=== PATIENT | female | born 1970 | race Hispanic/Latino ===

== ENCOUNTER 2019-08-07 01:20 | Inpatient (IN) | payer MEDICAID ==
--- NOTE | 2019-08-07 04:01 | P.HP ---
Certification for Inpatient Patient admitted to: Inpatient With expected LOS: <2 Midnights Practitioner: I am a practitioner with admitting privileges, knowledge of patient current condition, hospital course, and medical plan of care. Services: Services provided to patient in accordance with Admission requirements found in Title 42 Section 412.3 of the Code of Federal Regulations Patient History Date of Service: 08/07/19 Reason for admission: Cough and shortness of breath History of Present Illness: 49-year-old woman with a history of diabetes mellitus and hypertension was t ransferred from [facility] to this hospital due to acute respiratory failure. Patient was diagnosed with COVID 19 infection about 1 week ago. She reports progressive shortness of breath and coughing spells which became much worse over the last couple of days. Her oxygen saturation was down to 68% on room air in the emergency department. Patient was also febrile. Patient was placed on oxygen by nasal cannula. He was requiring 6 L of oxygen to maintain SaO2 around 89 to 90%. Patient given IV fluid, Zithromax and transferred here to be admitted to the ICU. Her oxygen saturation was 87% on 6 L oxygen by nasal cannula. - Past Medical/Surgical History -: Hypertension -: Diabetes - Family History Family History: Reviewed- Non-Contributory - Social History Smoking Status: Never smoker Alcohol use: No CD- Drugs: No Place of Residence: Home Review of Systems Other: Except as documented, all other systems reviewed and negative. Physical Examination - Physical Exam General: Alert, Moderate distress HEENT: Mucous membr. moist/pink, Sclerae nonicteric Neck: Supple, JVD not distended Respiratory: Normal air movement, Crackles/rales (Mild bilateral basal rales.) Cardiovascular: No edema, Normal pulses, Regular rate/rhythm, Normal S1 S2 Capillary refill: <2 Seconds Gastrointestinal: Normal bowel sounds, Soft and benign, No tenderness Musculoskeletal: No swelling, No erythema Integumentary: No rashes Neurological: Normal speech, Normal strength at 5/5 x4 extr, Cranial nerves 3-12 intact Assessment and Plan - Problems (Diagnosis) (1) Acute respiratory failure with hypoxia Current Visit: Yes Status: Acute (2) Viral pneumonia Current Visit: Yes Status: Acute (3) COVID-19 virus infection Current Visit: Yes Status: Acute (4) Diabetes mellitus type 2 in nonobese Current Visit: Yes Status: Acute (5) Hypertension Current Visit: Yes Status: Acute - Plan Admit to the ICU. Supportive measures with IV fluids. Antipyretics. Start IV Zithromax Start IV Solu-Medrol Titrate oxygen. Use Ventimask for now. BiPAP as needed. Consult to pulmonary. Insulin sliding scale for glucose management. Hold antihypertensives for now. Mena catheter. - Advance Directives Does patient have a Living Will: No Does patient have a Durable POA for Healthcare: No
[2019-08-07] MEDS ORDERED: ACETAMINOPHEN 500 MG TAB PO PRN (04:19)
[2019-08-07] MEDS ORDERED: NA CHLORIDE 0.9% 1,000 ML IV SCH (05:00)
[2019-08-07] MEDS ORDERED: AZITHROMYCIN IV 500 MG in NA CHLORIDE 0.9% 250 ML IVPB SCH ×3 (05:00→22:00)
[2019-08-07 05:24] LABS: Specific Gravity >= 1.030 (1.005-1.030); Urine Appearance CLEAR; Urine Bilirubin NEGATIVE (NEG); Urine Blood NEGATIVE (NEG); Urine Color YELLOW; Urine Glucose 3+ (NEG); Urine Protein TRACE (NEG); Urine Specific Gravity >=1.030 (1.005-1.030); Urine Urobilinogen 0.2 mg/dL (0.2-1.0)
[2019-08-07 05:25] LABS: Absolute Lymphocytes (CBC) 0.7 K/uL (0.7-4.9); Basophils % 0.1 % (0-1.3); Lymphocytes % 8.2 % (15.3-44.8); MPV 8.1 fL (7.6-11.3); RBC Red Blood Cell Count 4.31 M/uL (3.86-4.86)
[2019-08-07 05:29] LABS: Protime INR 1.02
[2019-08-07 05:39] LABS: Albumin 2.6 g/dL (3.4-5.0); Bilirubin Total 0.5 mg/dL (0.2-1.0); Magnesium 2.9 mg/dL (1.8-2.4); Phosphorus 3.5 mg/dL (2.5-4.9); Potassium 3.7 mmol/L (3.5-5.1); Protein, Total 7.3 g/dL (6.4-8.2)
[2019-08-07 05:44] LABS: Urine Amorphous Sediment 2+ /HPF (NONE SEEN); Urine Bacteria <20 /HPF (<20); Urine Culture Reflex Order NOT NEEDED; Urine RBC NONE SEEN /HPF (NONE SEEN); Urine Urothelial Cells <5 /HPF (NONE SEEN)
[2019-08-07 05:50] LABS: Arterial Blood Carboxyhemoglob 0.7 % (0-1.5); Blood Gas Oxyhemoglobin 92.5 % (94-97); Blood O2 Saturation 94.1 % (92-98.5)
[2019-08-07 07:00] LABS: Blood Morphology Comment NOT SEEN (NOT SEEN); Platelet Estimate ADEQ
[2019-08-07 07:54] LABS: Ferritin 364.6 ng/mL (8-388)
[2019-08-07] MEDS ORDERED: PNEUMOCOCCAL VACCINE 0.5 ML IMVAC ONE (08:00)
[2019-08-07] MEDS ORDERED: POTASSIUM 25 MEQ EFFERV TAB PO ONE (08:00)
[2019-08-07] MEDS: INSULIN -REGULAR HUMAN 50 UNIT/0.5 ML ML SQ SCH ×4 (08:14→21:32)
--- NOTE | 2019-08-07 08:27 | RAD REPORT ---
EXAM DESCRIPTION: RAD - Chest Single View - 08/07/2019 5:21 am CLINICAL HISTORY: pneumonia Chest pain. COMPARISON: No comparisons FINDINGS: Portable technique limits examination quality. Moderate bilateral pulmonary opacities are noted most compatible with pneumonia. The heart is upper l imit normal in size. No displaced fractures.
[2019-08-07] MEDS: ENOXAPARIN 40 MG/0.4 ML SQ SCH ×3 (08:51→20:11)
[2019-08-07] MEDS ORDERED: METHYLPREDNISOLONE 40 MG INJ IV SCH (09:00)
[2019-08-07] MEDS: levoFLOXacin 500 MG TAB PO SCH (10:20)
--- NOTE | 2019-08-07 12:38 | P.CNS ---
Date of Consult: 08/07/19 Reason for Consult: Respiratory failure Chief Complaint: Cough and shortness of breath History of Present Illness: Patient is 49 years of age as transfer from another facility due to respiratory failure secondary to COVID 19 infection. Diagnosed about a week ago I saw this morning as not tolerating a CPAP shortness of breath and coughing which became progressive patient was on non-rebreather when assault this morning otherwise doing well does not appear to be any distress Allergies No Known Allergies Allergy (Verified 08/07/19 04:02) Home Medications: Glimepiride 1 mg PO BID 08/07/19 Losartan Potassium 25 mg PO DAILY 08/07/19 Metformin HCl 1,000 mg PO BID 08/07/19 Saxagliptin HCl [Onglyza] 5 mg PO DAILY 08/07/19 Simvastatin 20 mg PO BEDTIME 08/07/19 Solifenacin Succinate [Vesicare] 1 tab PO DAILY 08/07/19 - Past Medical/Surgical History Diabetic: Yes -: Hypertension -: Diabetes -: High cholesterol -: - Social History Alcohol use: No CD- Drugs: No Caffeine use: Yes Place of Residence: Home Review of Systems is unable to be obtained Physical Examination Temp Pulse Resp BP Pulse Ox 97 F 77 29 H 96/69 92 08/07/19 02:43 08/07/19 06:00 08/07/19 06:00 08/07/19 06:00 08/07/19 06:00 General: Other (Deferred) Laboratory Data (last 24 hrs) 08/07/19 04:58: PT 12.0, INR 1.02 08/07/19 04:58: Sodium 134 L, Potassium 3.7, BUN 14, Creatinine 0.73, Glucose 323 H, Phosphorus 3.5, Magnesium 2.9 H, Total Bilirubin 0.5, AST 35, ALT 40, Alkaline Phosphatase 96 08/07/19 04:58: WBC 8.5, Hgb 11.9 L, Hct 36.0, Plt Count 388 - Problems (1) Pneumonia due to COVID-19 virus Current Visit: Yes Status: Acute Plan: Patient is 49 years of age admitted with a Covid 19 pneumonia. She is doing better patient's start on BiPAP continue with steroids Dc IV fluids blood gases at improving interstitial changes compatible with coronal RS pneumonia Lovenox for DVT prophylaxis patient is clinically improving oblique can convert to nasal cannula oxygen tomorrow transfer to the floor once a room-air sat is above 90 percent consider discharging home on prednisone 10 mg twice a day
[2019-08-07 13:36] LABS: Arterial Blood Carboxyhemoglob 0.7 % (0-1.5); Blood O2 Saturation 95.4 % (92-98.5)
--- NOTE | 2019-08-07 13:57 | P.PN ---
Subjective Date of Service: 08/07/19 Chief Complaint: Cough and shortness of breath Subjective: Improving (Patient appears overall improved. Requiring non- rebreather.) Physical Examination - Vital Signs Temperature: 97 F Blood Pressure: 96/69 Pulse: 77 Respirations: 29 Pulse Ox (%): 92 - Physical Exam General: Alert, In no apparent distress, Cooperative HEENT: Atraumatic Neck: Supple Respiratory: Diminished (Bilateral) Cardiovascular: Normal pulses, Regular rate/rhythm Gastrointestinal: Normal bowel sounds, Soft and benign, Non-distended Integumentary: No tenderness/swelling, No erythema, No warmth, No cyanosis Neurological: Normal speech, Normal strength at 5/5 x4 extr, Normal tone, Normal affect - Studies Laboratory Data (last 24 hrs) 08/07/19 04:58: PT 12.0, INR 1.02 08/07/19 04:58: Sodium 134 L, Potassium 3.7, BUN 14, Creatinine 0.73, Glucose 323 H, Phosphorus 3.5, Magnesium 2.9 H, Total Bilirubin 0.5, AST 35, ALT 40, Alkaline Phosphatase 96 08/07/19 04:58: WBC 8.5, Hgb 11.9 L, Hct 36.0, Plt Count 388 Medications List Reviewed: Yes Assessment & Plan Discharge Plan: Home Plan to discharge in: 48 Hours Physician Review Additional Text: Impression Acute respiratory failure with hypoxia secondary to bilateral viral pneumonia positive for COVID 19 Diabetes mellitus type 2 bzj-ihybewa-pzvsxcrdx with hyperglycemia Hypertension Hyperlipidemia Plan: Acute respiratory failure with hypoxia secondary to bilateral viral pneumonia positive for COVID 19: Patient appears improved since yesterday although requiring non-rebreather. Case discussed at length with pulmonology. Pulmonology plans for BiPAP. Continue to wean off oxygen. Will provide incentive spirometer. Will change Solu-Medrol to Decadron. Will discuss with pulmonology about the possibility of convalescent plasma. Continue monitor closely. Anticipate improvement over the next 48 hr. Diabetes mellitus type 2 [id number]-axpgmgj-lwrvhrpna with hyperglycemia: Patient currently on Decadron. We will provide insulin sliding scale. Will check A1c. Restart home medication. Maintain blood sugar between 100-200. Hypertension: Restart home medication. Will monitor closely. Hyperlipidemia: Restart home medication. Will monitor closely. Time Spent Managing Pts Care (In Minutes): 55
[2019-08-07] MEDS: METFORMIN HCL 500 MG TAB PO SCH (16:07)
[2019-08-07] MEDS: GLIMEPIRIDE 2 MG TABLET PO SCH (16:08)
[2019-08-07] MEDS: ATORVASTATIN 10 MG TAB PO SCH (20:12)
[2019-08-07] MEDS ORDERED: HOME MED 1 EA UNK (Simvastatin [Simvastatin] 20 MG) PO SCH (21:00)
[2019-08-08 05:27] LABS: BUN Blood Urea Nitrogen 20 mg/dL (7-18); Bicarbonate 25 mmol/L (21-32); Glucose Level 181 mg/dL (74-106); Potassium 3.5 mmol/L (3.5-5.1); Sodium Level 139 mmol/L (136-145)
[2019-08-08] MEDS ORDERED: POTASSIUM CL SA 10 MEQ TAB PO ONE (05:44)
[2019-08-08] MEDS ORDERED: GLUCAGON 1 MG/VIAL IM PRN (07:11)
[2019-08-08] MEDS ORDERED: D50W 25 GM/50 ML SYRINGE/VIAL IV PRN (07:11)
[2019-08-08] MEDS: ENOXAPARIN 40 MG/0.4 ML SQ SCH ×2 (08:03→20:41)
[2019-08-08] MEDS: GLIMEPIRIDE 2 MG TABLET PO SCH ×2 (08:03→16:55)
[2019-08-08] MEDS: METFORMIN HCL 500 MG TAB PO SCH ×2 (08:03→16:55)
[2019-08-08] MEDS: levoFLOXacin 500 MG TAB PO SCH (08:03)
[2019-08-08] MEDS: INSULIN -REGULAR HUMAN 50 UNIT/0.5 ML ML SQ SCH ×4 (08:04→20:41)
[2019-08-08] MEDS: dexAMETHasone 4 MG/ML VIAL IV SCH ×2 (08:06→16:55)
[2019-08-08] MEDS: SAXAGLIPTIN HCL 5 MG PO SCH (08:06)
[2019-08-08] MEDS: FAMOTIDINE 20 MG/2 ML VIAL IV SCH ×2 (08:22→20:42)
[2019-08-08] MEDS: INSULIN GLARGINE 100 UNITS/ML SQ SCH (08:24)
[2019-08-08] MEDS ORDERED: dexAMETHasone 4 MG TAB PO SCH (09:00)
[2019-08-08] MEDS ORDERED: SPIRONOLACTONE 25 MG TABLET PO SCH ×2 (09:00)
[2019-08-08] MEDS ORDERED: LOSARTAN POTASSIUM 50 MG TABLET PO SCH (09:00)
[2019-08-08 09:08] LABS: Arterial Blood Carboxyhemoglob 0.8 % (0-1.5); Blood Gas Oxyhemoglobin 89.5 % (94-97); Blood O2 Saturation 90.9 % (92-98.5)
--- NOTE | 2019-08-08 15:51 | P.PN ---
Subjective Date of Service: 08/08/19 Chief Complaint: Cough and shortness of breath Subjective: Improving, Doing well Physical Examination - Vital Signs Temperature: 97.0 F Blood Pressure: 98/69 Pulse: 86 Respirations: 23 Pulse Ox (%): 96 - Physical Exam General: Alert, In no apparent distress, Cooperative HEENT: Atraumatic Neck: Supple Respiratory: Other (Better air movement bilateral but still decreased bilatera lly. Patient on non-rebreather.) Cardiovascular: Normal pulses, Regular rate/rhythm Gastrointestinal: Normal bowel sounds, No tenderness, No masses, No rebound, No guarding Neurological: Normal speech, Normal strength at 5/5 x4 extr, Normal tone, Normal affect - Studies Laboratory Data (last 24 hrs) 08/08/19 05:45: Potassium Cancelled 08/08/19 04:49: Sodium 139, Potassium 3.5, BUN 20 H, Creatinine 0.59, Glucose 181 H Microbiology Data (last 24 hrs): 08/07/19 05:09 Blood - Blood Anaerobic Blood Culture - Final 08/07/19 04:58 Blood - Blood Anaerobic Blood Culture - Final Medications List Reviewed: Yes Assessment & Plan Discharge Plan: Home Plan to discharge in: 72 Hours Physician Review Additional Text: Impression Acute respiratory failure with hypoxia secondary to bilateral viral pneumonia positive for COVID 19 Diabetes mellitus type 2 tzh-oylwscu-kjnsfxhvy with hyperglycemia Hypertension Hyperlipidemia Plan: Acute respiratory failure with hypoxia secondary to bilateral viral pneumonia positive for COVID 19: Patient continues to improve. Wean off non-rebreather. Spoke in detail with patient about the need for possible convalescent plasma. Information provided. She she is to discuss further with family About plasma. Continue Decadron. This was changed to IV. Encourage incentive spirometer. Encourage ambulation. Will discuss further with pulmonology. If condition continues to decline and if patient refuses plasma will need to consider Remdesivir. Continue DVT prophylaxis. Anticipate improvement over the next 72 hr. Diabetes mellitus type 2 cee-ajabylz-sohhxbfoq with hyperglycemia: Patient currently on Decadron. Continue insulin sliding scale. Continue to review and adjust medication. Home medication restarted yesterday. Maintain blood sugar between 100-200. Hypertension: Discontinue losartan due to low blood pressure. Hold Aldactone if blood pressure systolic less than 110. This was initiated by pulmonology. Hyperlipidemia: Will review closely. Time Spent Managing Pts Care (In Minutes): 55
[2019-08-08] MEDS: SPIRONOLACTONE 25 MG TABLET PO SCH (18:46)
[2019-08-08] MEDS: ATORVASTATIN 10 MG TAB PO SCH (20:40)
[2019-08-09] MEDS: dexAMETHasone 4 MG/ML VIAL IV SCH ×3 (01:15→17:35)
[2019-08-09 05:14] LABS: Absolute Lymphocytes (CBC) 0.8 K/uL (0.7-4.9); Basophils % 0.2 % (0-1.3); Hematocrit 33.1 % (36.0-45.0); Lymphocytes % 7.2 % (15.3-44.8); MPV 7.9 fL (7.6-11.3); RBC Red Blood Cell Count 4.02 M/uL (3.86-4.86)
[2019-08-09 05:27] LABS: BUN Blood Urea Nitrogen 20 mg/dL (7-18); Bicarbonate 24 mmol/L (21-32); Glucose Level 183 mg/dL (74-106); Sodium Level 138 mmol/L (136-145)
[2019-08-09] MEDS: INSULIN -REGULAR HUMAN 50 UNIT/0.5 ML ML SQ SCH ×4 (08:16→20:24)
[2019-08-09] MEDS: SPIRONOLACTONE 25 MG TABLET PO SCH (08:17)
[2019-08-09] MEDS: METFORMIN HCL 500 MG TAB PO SCH ×2 (08:17→17:37)
[2019-08-09] MEDS: GLIMEPIRIDE 2 MG TABLET PO SCH ×2 (08:18→17:36)
[2019-08-09] MEDS: levoFLOXacin 500 MG TAB PO SCH (08:18)
[2019-08-09] MEDS: INSULIN GLARGINE 100 UNITS/ML SQ SCH (08:18)
[2019-08-09] MEDS: FAMOTIDINE 20 MG/2 ML VIAL IV SCH (08:29)
[2019-08-09] MEDS: ENOXAPARIN 40 MG/0.4 ML SQ SCH ×2 (08:29→20:01)
[2019-08-09] MEDS: SAXAGLIPTIN HCL 5 MG PO SCH (08:31)
--- NOTE | 2019-08-09 08:36 | P.PN ---
Subjective Date of Service: 08/09/19 Chief Complaint: Respiratory failure Subjective: Improving (Patient is steadily improving tolerating BiPAP oxygen requirements in all less than 50% no fever less short of breath) Physical Examination - Vital Signs Temperature: 97.0 F Blood Pressure: 104/75 Pulse: 67 Respirations: 30 Pulse Ox (%): 93 - Physical Exam General: Other (Deferred patient in isolation) - Studies Laboratory Data (last 24 hrs) 08/09/19 04:54: WBC 11.0 H D, Hgb 11.4 L, Hct 33.1 L, Plt Count 512 H D 08/09/19 04:54: Sodium 138, Potassium 4.0, BUN 20 H, Creatinine 0.61, Glucose 183 H Microbiology Data (last 24 hrs): 08/07/19 05:09 Blood - Blood Anaerobic Blood Culture - Final 08/07/19 04:58 Blood - Blood Anaerobic Blood Culture - Final Medications List Reviewed: Yes Assessment & Plan - Problems (Diagnosis) (1) Pneumonia due to COVID-19 virus Current Visit: Yes Status: Acute Plan: Patient admitted with oakley wire pneumonia/gradually improving for sugars under control shortness of breath is better oxygen requirement less than 50% BiPAP p.r.n. change to p.o. Pepcid continue to wean down the O2 incentive spirometry maintain a negative fluid balance blood sugars under control
[2019-08-09] MEDS: FAMOTIDINE 20 MG TAB PO SCH ×2 (09:00→19:59)
[2019-08-09] MEDS ORDERED: NA CHLORIDE 0.9% 100 ML ONE (13:26)
--- NOTE | 2019-08-09 17:01 | P.PN ---
Subjective Date of Service: 08/09/19 Chief Complaint: Respiratory failure Subjective: Other (overall doing well.) Physical Examination - Vital Signs Temperature: 97.0 F Blood Pressure: 126/85 Pulse: 79 Respirations: 27 Pulse Ox (%): 90 - Physical Exam General: Alert, In no apparent distress, Cooperative HEENT: Atraumatic Neck: Supple Respiratory: Other (better air movement) Cardiovascular: Normal pulses, Regular rate/rhythm Gastrointestinal: Normal bowel sounds, No masses, No rebound, No guarding Musculoskeletal: No tenderness, No warmth Integumentary: No erythema, No warmth, No cyanosis Neurological: Normal speech, Normal strength at 5/5 x4 extr, Normal tone, Normal affect - Studies Laboratory Data (last 24 hrs) 08/09/19 04:54: WBC 11.0 H D, Hgb 11.4 L, Hct 33.1 L, Plt Count 512 H D 08/09/19 04:54: Sodium 138, Potassium 4.0, BUN 20 H, Creatinine 0.61, Glucose 183 H Medications List Reviewed: Yes Assessment & Plan Discharge Plan: Home Plan to discharge in: 72 Hours Physician Review Additional Text: Impression Acute respiratory failure with hypoxia secondary to bilateral viral pneumonia positive for COVID 19 Diabetes mellitus type 2 jze-siwuobo-girnbyrub with hyperglycemia Hypertension Hyperlipidemia Plan: Acute respiratory failure with hypoxia secondary to bilateral viral pneumonia positive for COVID 19: Patient continues to improve. Wean off non-rebreather. Patient agrees to convalescent plasma. Information provided.Will start plasma. Continue Decadron. This was changed to IV. Encourage incentive spirometer. Encourage ambulation. Will discuss further with pulmonology. Diabetes mellitus type 2 gll-tnajrhc-oqcrlkxxb with hyperglycemia: Patient currently on Decadron. Continue insulin sliding scale. Continue to review and adjust medication. Home medication restarted yesterday. Maintain blood sugar between 100-200. Hypertension: Discontinue losartan due to low blood pressure. Hold Aldactone if blood pressure systolic less than 110. This was initiated by pulmonology. Hyperlipidemia: Will review closely. Time Spent Managing Pts Care (In Minutes): 55
[2019-08-09] MEDS: ATORVASTATIN 10 MG TAB PO SCH (19:59)
[2019-08-09] MEDS: LORAZEPAM 0.5 MG TABLET PO PRN (21:32)
[2019-08-10] MEDS: dexAMETHasone 4 MG/ML VIAL IV SCH ×2 (00:36→08:54)
[2019-08-10 05:18] VITALS: BMI 29.4
[2019-08-10] MEDS: SAXAGLIPTIN HCL 5 MG PO SCH (07:13)
--- NOTE | 2019-08-10 07:17 | RAD REPORT ---
EXAM DESCRIPTION: RAD - Chest Single View - 08/10/2019 5:29 am CLINICAL HISTORY: Pneumonia COMPARISON: Portable August 06 TECHNIQUE: AP portable chest image was obtained 08/10/2019 5:29 am . FINDINGS: Lung volumes are low, further decreased compared to the prior study. Alveolar opacities ar e scattered in both lung [place]. When adjusting for the more shallow inspiratory effort, lung parench ymal opacification is probably not significantly different. No evidence for improvement. Lung [place] may be slightly worse. Heart and vasculature are normal. No measurable pleural effusion and no pneumothorax. No acute bony abnormality seen. No acute aortic findings suspected. IMPRESSION: Shallow inspiration accentuates the already existing airspace disease throughout both shayne ng [place]. No evidence for improvement. Lung [place] are potentially slightly worse.
[2019-08-10] MEDS: ENOXAPARIN 40 MG/0.4 ML SQ SCH ×2 (08:53→21:08)
[2019-08-10] MEDS: GLIMEPIRIDE 2 MG TABLET PO SCH ×2 (08:53→16:03)
[2019-08-10] MEDS: levoFLOXacin 500 MG TAB PO SCH (08:53)
[2019-08-10] MEDS: METFORMIN HCL 500 MG TAB PO SCH ×2 (08:53→16:03)
[2019-08-10] MEDS: SPIRONOLACTONE 25 MG TABLET PO SCH ×2 (08:53→09:00)
[2019-08-10] MEDS: INSULIN GLARGINE 100 UNITS/ML SQ SCH (08:54)
[2019-08-10] MEDS: FAMOTIDINE 20 MG TAB PO SCH ×2 (08:55→21:09)
[2019-08-10] MEDS: dexAMETHasone 4 MG TAB PO SCH ×2 (09:00→21:09)
[2019-08-10] MEDS: INSULIN -REGULAR HUMAN 50 UNIT/0.5 ML ML SQ SCH ×4 (09:33→21:00)
[2019-08-10] MEDS ORDERED: SPIRONOLACTONE 25 MG TABLET PO SCH (12:02)
[2019-08-10] MEDS: FUROSEMIDE 20 MG/ 2ML VIAL IV SCH (12:07)
--- NOTE | 2019-08-10 12:27 | P.PN ---
Subjective Date of Service: 08/10/19 Chief Complaint: Respiratory failure Subjective: Improving (Patient is improving still requiring high concentrations of oxygen chest x-ray no significant change) Physical Examination - Vital Signs Temperature: 97.2 F Blood Pressure: 102/64 Pulse: 71 Respirations: 18 Pulse Ox (%): 97 - Physical Exam General: Other (Examination deferred) - Studies Medications List Reviewed: Yes Assessment & Plan - Problems (Diagnosis) (1) Pneumonia due to COVID-19 virus Current Visit: Yes Status: Acute Plan: Patient has oakley virus induced pneumonia improving blood pressure is improved at some Lasix increase spironolactone continue negative fluid balance change to p.o. Decadron once patient is confirmed and tolerate nasal cannula oxygen less than 6 6 liters/minute come will consider discharge and low-dose prednisone and mg twice a day for 7 days no antibiotics required also added low-dose spironolactone to maintain a negative fluid balance
--- NOTE | 2019-08-10 14:56 | P.PN ---
Subjective Date of Service: 08/10/19 Chief Complaint: Respiratory failure Subjective: Improving Physical Examination - Vital Signs Temperature: 97.2 F Blood Pressure: 96/68 Pulse: 88 Respirations: 36 Pulse Ox (%): 95 - Physical Exam General: Alert, In no apparent distress, Oriented x3, Cooperative HEENT: Atraumatic Neck: Supple Respiratory: Other (Better air movement bilateral) Cardiovascular: Normal pulses, Regular rate/rhythm Gastrointestinal: Normal bowel sounds, Soft and benign, Non-distended Neurological: Normal speech, Normal strength at 5/5 x4 extr, Normal tone, Normal affect - Studies Medications List Reviewed: Yes Assessment & Plan Discharge Plan: Home Plan to discharge in: 48 Hours Physician Review Additional Text: Impression Acute respiratory failure with hypoxia secondary to bilateral viral pneumonia positive for COVID 19 Diabetes mellitus type 2 dce-omwjwfp-fkznichvq with hyperglycemia Hypertension Hyperlipidemia Plan: Acute respiratory failure with hypoxia secondary to bilateral viral pneumonia positive for COVID 19: Patient continues to improve. Patient received com less than plasma yesterday. Continue to wean off the Venti mask. Will transition to nasal cannula then to room air. Anticipate improvement over the next 48 hr. Will discuss further with pulmonology. Encourage incentive spirometer. [employer] ambulation. Diabetes mellitus type 2 ysu-ghgjmxg-elzsbqdrm with hyperglycemia: Patient currently on Decadron. Continue insulin sliding scale. Continue to review and adjust medication. Home medication restarted yesterday. Maintain blood sugar between 100-200. Hypertension: Losartan has been discontinued. Hold Aldactone if blood pressure systolic less than 110. This was initiated by pulmonology. Hyperlipidemia: Will review closely. Time Spent Managing Pts Care (In Minutes): 55
[2019-08-10] MEDS: LORAZEPAM 0.5 MG TABLET PO PRN (21:09)
[2019-08-10] MEDS: ATORVASTATIN 10 MG TAB PO SCH (21:09)
[2019-08-11] MEDS: ENOXAPARIN 40 MG/0.4 ML SQ SCH ×2 (08:23→21:27)
[2019-08-11] MEDS: levoFLOXacin 500 MG TAB PO SCH (08:24)
[2019-08-11] MEDS: FAMOTIDINE 20 MG TAB PO SCH ×2 (08:24→21:00)
[2019-08-11] MEDS: SPIRONOLACTONE 25 MG TABLET PO SCH (08:24)
[2019-08-11] MEDS: GLIMEPIRIDE 2 MG TABLET PO SCH ×2 (08:24→16:37)
[2019-08-11] MEDS: METFORMIN HCL 500 MG TAB PO SCH ×2 (08:24→16:37)
[2019-08-11] MEDS: FUROSEMIDE 20 MG/ 2ML VIAL IV SCH (08:25)
[2019-08-11] MEDS: INSULIN GLARGINE 100 UNITS/ML SQ SCH (08:25)
[2019-08-11] MEDS: dexAMETHasone 4 MG TAB PO SCH ×2 (08:30→21:28)
[2019-08-11] MEDS: INSULIN -REGULAR HUMAN 50 UNIT/0.5 ML ML SQ SCH ×4 (08:47→21:00)
[2019-08-11] MEDS: SAXAGLIPTIN HCL 5 MG PO SCH (08:48)
--- NOTE | 2019-08-11 11:10 | P.PN ---
Subjective Date of Service: 08/11/19 Chief Complaint: Respiratory failure Subjective: Improving (Patient is doing well wants to go all sats satisfactory nasal cannula oxygen) Review of Systems Unremarkable Physical Examination - Vital Signs Temperature: 97.9 F Blood Pressure: 106/53 Pulse: 74 Respirations: 22 Pulse Ox (%): 92 - Physical Exam General: Other (Deferred) - Studies Medications List Reviewed: Yes Assessment & Plan - Problems (Diagnosis) (1) Pneumonia due to COVID-19 virus Current Visit: Yes Status: Acute Plan: Patient admitted with respiratory failure has done very well plan to discharge home on oxygen there were telephoned visit with me next week continue with prednisone 10 mg twice a day for a week incentive spirometry at home vital signs stable Dc antibiotics low-dose spironolactone 12.5 mg daily Dc losartan Discharge Plan: Home
--- NOTE | 2019-08-11 13:13 | P.DS ---
Admission Date: 08/07/19 Discharge Date: 08/11/19 Primary Care Provider: Mahnaz Disposition: DC HOME/HOME HEALTH CARE Discharge Condition: GOOD Reason for Admission: Respiratory failure Consultations: Pulmonary-Dr. Nagel Procedures: CXR: COMPARISON: No comparisons FINDINGS: Portable technique limits examination quality. Moderate bilateral pulmonary opacities are noted most compatible with pneumonia. The heart is upper limit normal in size. No displaced fractures. Medical problem list: Acute respiratory failure with hypoxia secondary to bilateral viral pneumonia, positive for COVID 19 Diabetes mellitus type 2 [id number]-[id number] with hyperglycemia Hypertension Hyperlipidemia Brief History of Present Illness: 49-year-old female with history of diabetes, hypertension and hyperlipidemia. Patient was transferred from [facility] in [place] due to acute respiratory failure related to COVID 19 infection. Hospital Course: Patient was transferred to our facility from [facility] due to acute respiratory failure with hypoxia secondary to bilateral pneumonia related to COVID 19. She was transferred our facility due to overflow at that facility. Patient was seen by pulmonology done the course of her stay. Patient was treated with IV steroids and other medications. Patient required BiPAP during the course of her stay. Patient now transition to nasal cannula. Patient did receive convalesce the plasma during the course of her stay. Patient has significantly improved. Patient able to ambulate but with oxygen. Patient desires to go home. Case reviewed in detail with pulmonology. Pulmonology is in agreement for discharge at this time but the patient will require home oxygen. Social work will help arrange for home oxygen at discharge to maintain sats above 93%. At discharge patient will continue with prednisone 10 mg 1 pill twice daily for 7 days. Patient will continue with home oxygen. This can be weaned off slowly. Patient will need to follow up with pulmonology through [facility] in 1 week to monitor her progress and continue her care. Prior to discharge home oxygen will be arranged. Patient will need to continue to maintain quarantine because of her COVID 19 positivity. CDC guidelines on COVID will be provided. Patient will be followed by the health department. Patient will need to be retested 14 days since the initial positive test. Further instr uctions and recommendations will come from pulmonology as an outpatient. Continue incentive spirometer. Patient with diabetes mellitus type 2. Patient [id number]. Patient presented with hyperglycemia. This has remained stable. Patient did receive IV steroids. Blood sugar has remained stable. At discharge she will continue with her current medications including glimepiride 2 mg 1 pill twice daily, metformin 1000 mg 1 pill twice daily, and onglyza 5 mg 1 pill daily. Recommend to maintain blood sugar less 140 fasting and less than 200 after meals. Further adjustment can be done by her PCP. Patient with hypertension. Medications have been adjusted due to her COVID infection. She will no longer take losartan. Patient may continue with Aldactone 12.5 mg daily for the next 7 days. She is to hold medication if blood pressure less than 110 systolic. Recommend to maintain blood pressure less than 140/90. If blood pressure remains elevated she is to contact pulmonology for further recommendation. Patient with hyperlipidemia. At discharge she will continue with medication Zocor 20 mg daily. Vital Signs/Physical Exam: Temp Pulse Resp BP Pulse Ox 97.9 F 81 22 H 102/67 95 08/11/19 12:00 08/11/19 12:00 08/11/19 12:00 08/11/19 12:00 08/11/19 12:00 General: Alert, In no apparent distress, Oriented x3, Cooperative HEENT: Atraumatic Neck: Supple Respiratory: Other (Sarthak him breathing well on nasal cannula peer) Cardiovascular: Normal pulses Neurological: Normal speech, Normal strength at 5/5 x4 extr, Normal tone, Normal affect Laboratory Data at Discharge: WBC 11.0 K/uL (4.3-10.9) H D 08/09/19 04:54 Hgb 11.4 g/dL (12.0-15.0) L 08/09/19 04:54 Hct 33.1 % (36.0-45.0) L 08/09/19 04:54 Plt Count 512 K/uL (152-406) H D 08/09/19 04:54 PT 12.0 SECONDS (9.5-12.5) 08/07/19 04:58 INR 1.02 08/07/19 04:58 Sodium 138 mmol/L (136-145) 08/09/19 04:54 Potassium 4.0 mmol/L (3.5-5.1) 08/09/19 04:54 BUN 20 mg/dL (7-18) H 08/09/19 04:54 Creatinine 0.61 mg/dL (0.55-1.3) 08/09/19 04:54 Glucose 183 mg/dL (74-106) H 08/09/19 04:54 Phosphorus 3.5 mg/dL (2.5-4.9) 08/07/19 04:58 Magnesium 2.9 mg/dL (1.8-2.4) H 08/07/19 04:58 Total Bilirubin 0.5 mg/dL (0.2-1.0) 08/07/19 04:58 AST 35 U/L (15-37) 08/07/19 04:58 ALT 40 U/L (12-78) 08/07/19 04:58 Alkaline Phosphatase 96 U/L (45-117) 08/07/19 04:58 Home Medications: Glimepiride 1 mg PO BID 08/07/19 Metformin HCl 1,000 mg PO BID 08/07/19 Saxagliptin HCl [Onglyza] 5 mg PO DAILY 08/07/19 Simvastatin 20 mg PO BEDTIME 08/07/19 Spironolactone [Aldactone*] 12.5 mg PO DAILY #7 tab 08/11/19 predniSONE [Deltasone] 10 mg PO BID #20 tab 08/11/19 New Medications: Spironolactone [Aldactone*] 12.5 mg PO DAILY #7 tab predniSONE [Deltasone] 10 mg PO BID #20 tab Patient Discharge Instructions: 1. Recommend follow up with PCP in 1 week to follow up this hospitalization. 2. Patient was transferred to our facility from [facility] due to acute respiratory failure with hypoxia secondary to bilateral pneumonia related to COVID 19. She was transferred our facility due to overflow at that facility. Patient was seen by pulmonology done the course of her stay. Patient was treated with IV steroids and other medications. Patient required BiPAP during the course of her stay. Patient now transition to nasal cannula. Patient did receive convalesce the plasma during the course of her stay. Patient has significantly improved. Patient able to ambulate but with oxygen. Patient desires to go home. Case reviewed in detail with pulmonology. Pulmonology is in agreement for discharge at this time but the patient will require home oxygen. Social work will help arrange for home oxygen at discharge to maintain sats above 93%. At discharge patient will continue with prednisone 10 mg 1 pill twice daily for 7 days. Patient will continue with home oxygen. This can be weaned off slowly. Patient will need to follow up with pulmonology through [facility] in 1 week to monitor her progress and continue her care. Prior to discharge home oxygen will be arranged. Patient will need to continue to maintain quarantine because of her COVID 19 positivity. CDC guidelines on COVID will be provided. Patient will be followed by the health department. Patient will need to be retested 14 days since the initial positive test. Further instructions and recommendations will come from pulmonology as an outpatient. Continue incentive spirometer. 3. Patient with diabetes mellitus type 2. Patient [id number]. Patient presented with hyperglycemia. This has remained stable. Patient did receive IV steroids. Blood sugar has remained stable. At discharge she will continue with her current medications including glimepiride 2 mg 1 pill twice daily, metformin 1000 mg 1 pill twice daily, and onglyza 5 mg 1 pill daily. Recommend to maintain blood sugar less 140 fasting and less than 200 after meals. Further adjustment can be done by her PCP. 4. Patient with hypertension. Medications have been adjusted due to her COVID infection. She will no longer take losartan. Patient may continue with Aldactone 12.5 mg daily for the next 7 days. She is to hold medication if blood pressure less than 110 systolic. Recommend to maintain blood pressure less than 140/90. If blood pressure remains elevated she is to contact pulmonology for further recommendation. 5. Patient with hyperlipidemia. At discharge she will continue with medication Zocor 20 mg daily. Diet: ADA Activity: Fall precautions Time spent managing pt's care (in minutes): 55
--- NOTE | 2019-08-11 13:36 | P.PN ---
Subjective Date of Service: 08/11/19 Primary Care Provider: Mahnaz Chief Complaint: Respiratory failure Subjective: Other (Patient appears much improved. Patient able to ambulate to bathroom. Still requiring oxygen.) Physical Examination - Vital Signs Temperature: 97.9 F Blood Pressure: 102/67 Pulse: 81 Respirations: 22 Pulse Ox (%): 95 - Physical Exam General: Alert, In no apparent distress, Oriented x3, Cooperative HEENT: Atraumatic Neck: Supple Respiratory: Other (Patient requiring oxygen) Cardiovascular: Normal pulses Neurological: Normal speech, Normal strength at 5/5 x4 extr, Normal tone, Normal affect - Studies Medications List Reviewed: Yes Assessment & Plan Discharge Plan: Home Plan to discharge in: 24 Hours Physician Review Additional Text: Impression Acute respiratory failure with hypoxia secondary to bilateral viral pneumonia positive for COVID 19 Diabetes mellitus type 2 ier-txpxckl-lctswjith with hyperglycemia Hypertension Hyperlipidemia Plan: Acute respiratory failure with hypoxia secondary to bilateral viral pneumonia positive for COVID 19: Patient has significantly improved. Patient able to ambulate. Spoke with pulmonology. Pulmonology recommends discharge today if home oxygen can be arranged. Spoke with social secretary on arranging for home oxygen for possible discharge as early as today. Patient will need to continue with prednisone 10 mg 1 pill twice daily for at least 1 week at discharge. Patient will require home oxygen at discharge. Continue incentive spirometer. Will reassess later it. As mentioned above if home oxygen can be arranged will discharge today. Diabetes mellitus type 2 [id number] with hyperglycemia: Patient currently on Decadron. Continue insulin sliding scale. Continue to review and adjust medication. Continue home medication Hypertension: Losartan has been discontinued. Hold Aldactone if blood pressure systolic less than 110. This was initiated by pulmonology. Pulmonology desires Aldactone 12.5 mg daily if blood pressure adequate Hyperlipidemia: Continue home medication Time Spent Managing Pts Care (In Minutes): 55
[2019-08-11] MEDS: ATORVASTATIN 10 MG TAB PO SCH (21:27)
[2019-08-12 03:08] VITALS: BP 107/70; TEMP 98.5; O2SAT 98
== END 2019-08-12 02:00 | disposition home or self-care (01) | DRG 177 ==
LOC: 3RD-ICU 02:26 → 2ND 08-10 17:05 → 4TH 08-10 17:56
PROVIDERS: ADMIT Internal Medicine; ATTEND Family Medicine
DX: U07.1 COVID-19 (principal); J12.89 Other viral pneumonia; J96.01 Acute respiratory failure with hypoxia; I10 Essential (primary) hypertension; E11.65 Type 2 diabetes mellitus with hyperglycemia; E78.5 Hyperlipidemia, unspecified; Z79.84 Long term (current) use of oral hypoglycemic drugs; Z79.899 Other long term (current) drug therapy
CPT/HCPCS: 36415; 71045; 80048; 80053; 81001; 81025; 82728; 82805; 82947; 83036; 83735; 84100; 84145; 85025; 85610; 86140; 86850; 86900; 86901; 87040; 94660; J0456; J1650; J1815; J1940; J2920; J7030; J8540